=== PATIENT | male | born 1970 | race Caucasian/White ===

== ENCOUNTER → 2017-07-08 | Outpatient (REF) | payer BC ==
[2017-07-08 11:22] LABS: ESTIMATED AVERAGE GLUCOSE 255 MG/DL (60-110)
[2017-07-08 11:38] LABS: ANION GAP 8 MEQ/L (8-16); BLOOD UREA NITROGEN 14 MG/DL (7-18); CARBON DIOXIDE LEVEL 30 MEQ/L (21-32); CHLORIDE LEVEL 96 MEQ/L (98-107); CREATININE FOR GFR 0.98 MG/DL (0.70-1.30); GLOMERULAR FILTRATION RATE > 60.0 (>60); GLUCOSE, FASTING 332 MG/DL (70-105); POTASSIUM SERUM 4.1 MEQ/L (3.5-5.1); SODIUM LEVEL 134 MEQ/L (136-145)
== END ==
LOC: M SFHCPLAZ 09:42
DX: E11.9 Type 2 diabetes mellitus without complications (principal)
CPT/HCPCS: 83036

== ENCOUNTER → 2020-07-15 | Outpatient (REF) | payer BC ==
[2020-07-15 17:55] LABS: HEMOGLOBIN A1c 8.6 %
[2020-07-15 18:02] LABS: ALT/SGPT 36 U/L (12-78); BILIRUBIN,TOTAL 0.4 MG/DL (0.2-1.0); BLOOD UREA NITROGEN 17 MG/DL (7-18); CALCIUM LEVEL 8.7 MG/DL (8.5-10.1); CARBON DIOXIDE LEVEL 30 MEQ/L (21-32); CHLORIDE LEVEL 102 MEQ/L (98-107); CHOLESTEROL LEVEL 148 MG/DL (<200); CHOLESTEROL RISK RATIO 3.794 (<5); CREATININE FOR GFR 1.07 MG/DL (0.70-1.30); GLOMERULAR FILTRATION RATE > 60.0 (>60); GLUCOSE, FASTING 225 MG/DL (70-100); HDL CHOLESTEROL 39 MG/DL (>40); LDL CHOLESTEROL 66 MG/DL (<100); NON-HDL-C 109 MG/DL; SODIUM LEVEL 137 MEQ/L (136-145); TOTAL PROTEIN 7.2 GM/DL (6.4-8.2); TRIGLYCERIDES LEVEL 214 MG/DL (<150)
[2020-07-15 18:12] LABS: MAU/CREAT RATIO 17.9 MCG/MG (0.0-30.0)
== END ==
LOC: M SFHCPLAZ 15:32
PROVIDERS: ATTEND Physician Assistant
DX: E11.65 Type 2 diabetes mellitus with hyperglycemia (principal)

== ENCOUNTER 2025-03-08 16:01 | Emergency (ER) | payer BC ==
[~2025-03-08] VITALS: Ht 182.9 cm; Wt 114.0 kg
[2025-03-08] MEDS ORDERED: LISI40TA10 PO (16:12)
[2025-03-08] MEDS ORDERED: METF500T13 PO (16:12)
[2025-03-08] MEDS: LABETALOL 100 MG/20 ML VIAL IV STA (16:46)
[2025-03-08 17:02] LABS: BASO # 0.0 10^3/uL (0.0-0.2); BASO % 0.5 % (0.0-1.0); EOS # 0.0 10^3/uL (0.0-0.5); EOS % 0.2 % (0.0-3.0); LYMPH # 1.3 10^3/uL (1.5-5.0); LYMPH % 15.0 % (24.0-44.0); MONO # 0.7 10^3/uL (0.0-0.8); MONO % 7.9 % (2.0-8.0); NEUTROPHILS # 6.4 10^3/uL (1.5-8.5); NEUTROPHILS % 76.0 % (36.0-66.0); PLATELET COUNT, AUTOMATED 228 10^3/uL (150-450)
[2025-03-08 17:15] LABS: INR 0.95
[2025-03-08 17:25] LABS: CK-MB VALUE MASS 2.0 NG/ML (<3.6)
[2025-03-08 17:27] LABS: ALT/SGPT 35 U/L (7.0-40); AST/SGOT 19 U/L (<34); CALCIUM LEVEL 9.5 MG/DL (8.5-10.1); CARBON DIOXIDE LEVEL 30 MMOL/L (20-31); CHLORIDE LEVEL 101 MMOL/L (98-107); CREATININE FOR GFR 0.86 MG/DL (0.70-1.30); GLOMERULAR FILTRATION RATE > 90.0 (>56); POTASSIUM SERUM 4.1 MMOL/L (3.5-5.1); SODIUM LEVEL 139 MMOL/L (136-145)
[2025-03-08 17:29] LABS: FREE T4 1.63 NG/DL (0.89-1.76)
[2025-03-08 17:34] LABS: CPK CREATINE PHOSPHOKINASE 93 U/L (46-171); MB/CK RELATIVE INDEX 2.15 (< OR =4)
[2025-03-08] MEDS ORDERED: HOME MED LIST COMPLETE! XX SCH (17:50)
[2025-03-08] MEDS ORDERED: AMLO1TAB25 PO (18:02)
[2025-03-08 18:06] VITALS: BP 218/104
[2025-03-08 18:46] VITALS: TEMP 99
[2025-03-08 18:48] LABS: CK-MB VALUE MASS 1.2 NG/ML (<3.6)
[2025-03-08 18:49] LABS: CPK CREATINE PHOSPHOKINASE 76.0 U/L (46-171); MB/CK RELATIVE INDEX 1.57 (< OR =4)
[2025-03-08 20:00] VITALS: BP 157/74; O2SAT 94
== END 2025-03-08 20:36 | disposition home or self-care (01) ==
LOC: M ED 16:01
DX: I16.0 Hypertensive urgency (principal); E11.9 Type 2 diabetes mellitus without complications; Z79.84 Long term (current) use of oral hypoglycemic drugs; Z79.899 Other long term (current) drug therapy
CPT/HCPCS: 36415; 71046; 80048; 80076; 82550; 82553; 84439; 84443; 84484; 85025; 85610; 85730; 93005; 93041; 94760; 96374; 99285; G0463; J1920

== ENCOUNTER → 2025-03-16 | Outpatient (CLI) | payer BC ==
[~2025-03-16] MED LIST: AMLO1TAB25 PO; LISI40TA10 PO; METF500T13 PO
[2025-03-16 19:18] LABS: ALT/SGPT 31.0 U/L (7.0-40); AST/SGOT 20.0 U/L (<34); CALCIUM LEVEL 9.6 MG/DL (8.5-10.1); CARBON DIOXIDE LEVEL 31.0 MMOL/L (20-31); CHLORIDE LEVEL 99.0 MMOL/L (98-107); CHOLESTEROL LEVEL 123.0 MG/DL (<200); CHOLESTEROL RISK RATIO 3.11 (<5); CREATININE FOR GFR 1.39 MG/DL (0.70-1.30); GLOMERULAR FILTRATION RATE 60.6 (>56); LDL CHOLESTEROL 52.5 MG/DL (<100); NON-HDL-C 83.5 MG/DL; POTASSIUM SERUM 4.5 MMOL/L (3.5-5.1); SODIUM LEVEL 140.0 MMOL/L (136-145); TRIGLYCERIDES LEVEL 155.0 MG/DL (<150)
[2025-03-16 19:22] LABS: ESTIMATED AVERAGE GLUCOSE 229.0 MG/DL (60-110)
== END ==
LOC: M PLALAB 16:14
PROVIDERS: ATTEND Nurse Practitioner Family
DX: E78.5 Hyperlipidemia, unspecified (principal); E11.65 Type 2 diabetes mellitus with hyperglycemia

== ENCOUNTER → 2025-05-03 | Outpatient (CLI) | payer BC | LOC: M RAD 09:24 | PROVIDERS: ATTEND Nurse Practitioner Family | DX: I11.9 Hypertensive heart disease without heart failure (principal) ==